=== PATIENT | female | born 1975 | race Caucasian/White ===

== ENCOUNTER 2020-01-05 12:02 | Emergency (ER) | payer BC ==
[2020-01-05 12:16] VITALS: BP 126/83; PULSE 80
[2020-01-05] MEDS ORDERED: HYDROmorphone 1 MG/ML Syringe IM ONE (12:33)
[2020-01-05] MEDS ORDERED: Ketorolac 60 MG/2 ML SDV IM ONE (12:33)
[2020-01-05] MEDS ORDERED: Cyclobenzaprine 10 MG Tab PO ONE (12:33)
--- NOTE | 2020-01-05 13:38 | EDM.PDOC ---
ED HPI GENERAL MEDICAL PROBLEM - General Chief Complaint: Back Pain or Injury Stated Complaint: BACK PAIN Time Seen by Provider: 01/05/20 12:24 Source of Information: Reports: Patient History Limitations: Reports: No Limitations - History of Present Illness INITIAL COMMENTS - FREE TEXT/NARRATIVE: The patient presents with low back pain. She had a bad episode over a week ago. She went to the chiropractor and that did help but yesterday she had more pain again. The pain is in the low back and maybe more on the right side. She has no numbness or weakness. She has no bowel or bladder problems. She has a history of back problems. She sees a chiropractor. Onset: Gradual Duration: Week(s): Location: Reports: Back Quality: Reports: Sharp Severity: Severe Improves with: Reports: Immobilization Worsens with: Reports: Movement Context: Denies: Trauma Associated Symptoms: Reports: No Other Symptoms Lower Back Pain Score (Numeric/FACES): 5 - Related Data Allergies Allergy/AdvReac Type Severity Reaction Status Date / Time No Known Allergies Allergy Verified 01/05/20 12:16 Home Meds: Home Meds Cyclobenzaprine [Flexeril] 10 mg PO TID PRN #20 tab 01/05/20 [Rx] Hydrocodone/Acetaminophen [Hydrocodon-Acetaminophen 5-325] 1 - 2 each PO Q6HR PRN #20 tablet 01/05/20 [Rx] Multivitamin [Multivitamins] 1 tab PO DAILY 01/05/20 [History] Past Medical History HEENT History: Reports: Other (See Below) Other HEENT History: stimatism - Past Surgical History HEENT Surgical History: Reports: Oral Surgery, Tonsillectomy, Other (See Below) Female Surgical History: Reports: Other (See Below) Other Female Surgeries/Procedures: bladder surgery at age 7 Social & Family History - Family History Endocrine/Metabolic: Reports: Diabetes, Type I, Diabetes, type II Other Endocrine/Metabolic Family History: mom has type 2, brither has type 1 - Tobacco Use Smoking Status *Q: Never Smoker Second Hand Smoke Exposure: No - Caffeine Use Caffeine Use: Reports: Coffee - Recreational Drug Use Recreational Drug Use: No ED ROS GENERAL - Review of Systems Review Of Systems: See Below Constitutional: Reports: No Symptoms HEENT: Reports: No Symptoms Respiratory: Reports: No Symptoms Cardiovascular: Reports: No Symptoms Endocrine: Reports: No Symptoms GI/Abdominal: Reports: No Symptoms : Reports: No Symptoms Musculoskeletal: Reports: Back Pain ED EXAM,LOWER BACK PAIN/INJURY - Physical Exam Exam: See Below Exam Limited By: No Limitations General Appearance: Alert, No Apparent Distress Ears: Normal External Exam Nose: Normal Inspection Head: Atraumatic, Normocephalic Neck: Normal Inspection Respiratory/Chest: No Respiratory Distress, Lungs Clear, Normal Breath Sounds Cardiovascular: Regular Rate, Rhythm, No Edema, No Murmur GI/Abdominal: Soft, Non-Tender, No Organomegaly, No Mass Back Exam: Normal Inspection Extremities: Normal Inspection Neurological: Alert, No Motor/Sensory Deficits, Oriented x 3 Course - Vital Signs Last Recorded V/S: Last Vital Signs Temp 97.8 F 01/05/20 12:14 Pulse 80 01/05/20 12:14 Resp 16 01/05/20 12:14 BP 126/83 01/05/20 12:14 Pulse Ox 96 01/05/20 12:14 - Orders/Labs/Meds Meds: Medications Discontinued Medications Generic Name Dose Route Start Last Admin Trade Name Angie PRN Reason Stop Dose Admin Cyclobenzaprine HCl 10 mg 01/05/20 12:33 01/05/20 12:40 Flexeril PO 01/05/20 12:34 10 mg ONETIME ONE Administration Hydromorphone HCl 1 mg 01/05/20 12:33 01/05/20 12:40 Dilaudid IM 01/05/20 12:34 1 mg ONETIME ONE Administration Ketorolac Tromethamine 60 mg 01/05/20 12:33 01/05/20 12:40 Toradol IM 01/05/20 12:34 60 mg ONETIME ONE Administration - Re-Assessments/Exams Free Text/Narrative Re-Assessment/Exam: 01/05/20 13:38 I ordered dilaudid 1mg IM, toradol 60mg IM, and flexaril 10mg PO. Departure - Departure Time of Disposition: 14:00 Disposition: Home, Self-Care 01 Condition: Good Clinical Impression: Low back pain Qualifiers: Chronicity: acute Back pain laterality: bilateral Sciatica presence: without sciatica Qualified Code(s): M54.5 - Low back pain - Discharge Information *PRESCRIPTION DRUG MONITORING PROGRAM REVIEWED*: No *COPY OF PRESCRIPTION DRUG MONITORING REPORT IN PATIENT SAE: No Prescriptions: Hydrocodone/Acetaminophen [Hydrocodon-Acetaminophen 5-325] 1 - 2 each PO Q6HR PRN #20 tablet PRN Reason: Pain Cyclobenzaprine [Flexeril] 10 mg PO TID PRN #20 tab PRN Reason: Pain Referrals: PCP,None [Primary Care Provider] - Additional Instructions: Take motrin or aleve for pain. Take the flexeril as needed for pain. If that does not help, try the hyrdocodone. Follow up with your provider to talk about possibly getting an MRI. Follow up with your chiropractor. Please return if you are worse. Sepsis Event Note - Evaluation Sepsis Screening Result: No Definite Risk - Focused Exam Vital Signs: Vital Signs Temp Pulse Resp BP Pulse Ox 01/05/20 12:14 97.8 F 80 16 126/83 96 Date Exam was Performed: 01/05/20 Time Exam was Performed: 13:33
== END 2020-01-05 13:58 | disposition home or self-care (01) ==
LOC: JD.ED 12:02
DX: M54.5 Low back pain (principal)
CPT/HCPCS: 96372; 99283; A9270; J1170; J1885